=== PATIENT | male | born 1960 | race Caucasian/White ===

== ENCOUNTER 2017-12-07 08:47 | Emergency (ER) | payer OTHER ==
[~2017-12-07] VITALS: Ht 182.9 cm; Wt 98.0 kg
[~2017-12-07 08:47] MED LIST: ASPI81TA28 PO; PANT40TA PO
[2017-12-07 08:49] VITALS: TEMP 36.5; Ht 182.9 cm; Wt 98.0 kg
[2017-12-07] MEDS ORDERED: KETOROLAC TROMETHAMINE 60 MG/2 ML VIAL IM STA (09:15)
[2017-12-07] MEDS ORDERED: OXYCODONE HCL IR 5 MG TAB (IMMEDIATE RELEASE) PO STA (09:15)
[2017-12-07] MEDS ORDERED: DEXAMETHASONE SOD INJ 4 MG/ML 5 ML VIAL IM STA (09:15)
[2017-12-07] MEDS ORDERED: CYCLOBENZAPRINE HCL 10 MG TAB PO STA (09:15)
[2017-12-07] MEDS ORDERED: DEXAMETHASONE **PF** INJ 10 MG/ML VIAL ONE (09:24)
--- NOTE | 2017-12-07 10:17 | DIAGNOSTIC IMAGING REPORT ---
L-SPINE MIN 4 VIEWS ROUTINE HISTORY: Pain low back pain COMPARISON: None. FINDINGS: There is no fracture. Grade 1 anterolisthesis L5 on S1. Associated with a probable posterior spondylolysis. Mild degenerative osteophytic changes throughout. No evidence for compression deformity. Mild degenerative disc change throughout. IMPRESSION: 1. Grade 1 spondylolisthesis L5 on S1 associated with a posterior spondylolysis. 2. Estimated anterolisthesis is 1 cm. 3. Moderate degenerative disc change throughout most significant at L5-S1. The above report was generated using voice recognition software. It may contain grammatical, syntax or spelling errors. Electronically signed by: Ulices Pratt M.D. 12/07/2017 10:15 AM Dictated Date/Time: 12/07/2017 10:14 AM
[2017-12-07 10:24] VITALS: BP 115/79; PULSE 70; O2SAT 98
[2017-12-07] MEDS ORDERED: METH4PAK PO (10:33)
[2017-12-07] MEDS ORDERED: OXYC1TAB3 PO (10:33)
--- NOTE | 2017-12-07 10:34 | EMERGENCY ROOM VISIT NOTE ---
History First contact with patient: 09:00 Chief Complaint: BACK PAIN Stated Complaint: BACK PAIN History of Present Illness The patient is a 57 year old male who presents to the Emergency Room with complaints of right-sided low back pain which radiates into his right thigh. The patient states that he has had chronic low back pain for the past 5 years. She states it flares up intermittently but today it is worse. He does admit to lifting heavy intermittently and states he might have lifted something which irritated his back. The patient denies any numbness and tingling in his right lower leg. He denies a loss of bowel or bladder control or any saddle anesthesia. The patient has only seen a chiropractor in the past for his back. He has not taken anything today for the pain. He took some ibuprofen yesterday without any relief. Review of Systems 10 system review was performed and was negative unless stated otherwise history of present illness. Past Medical/Surgical History Knee surgery, hernia repair, chronic back pain Social History Smoking Status: Never Smoker Alcohol Use: occasionally Drug Use: none Marital Status: Occupation Status: employed Current/Historical Medications No Active Prescriptions or Reported Meds Physical Exam Vital Signs Date Time Temp Pulse Resp B/P (MAP) Pulse Ox O2 Delivery O2 Flow Rate FiO2 12/07/17 10:24 70 18 115/79 98 12/07/17 08:49 36.5 70 16 160/96 96 Physical Exam PHYSICAL EXAM: Vital Signs normal: Reviewed Nurse's notes and agree. GEN.: 57- year-old male appears in no acute distress. MENTAL STATUS: Alert and oriented 3. LUMBAR SPINE: No gross bony abnormality noted. Patient is nontender to palpation over the spinous processes. She is tender to palpation over the right paravertebral region, left side nontender. He has full range of motion of the lumbar spine with pain elicited with all movement. Muscle strength is 5 out of 5 bilateral lower extremities and symmetrical. NEURO: Patient is able to heel and toe walk without difficulty. I lateral patellar and Achilles reflexes are 2+. Sensation is intact to pinprick bilateral lower extremities. Negative straight leg raise bilaterally. Medical Decision & Procedures ER Provider Diagnostic Interpretation: L-SPINE MIN 4 VIEWS ROUTINE HISTORY: Pain low back pain COMPARISON: None. FINDINGS: There is no fracture. Grade 1 anterolisthesis L5 on S1. Associated with a probable posterior spondylolysis. Mild degenerative osteophytic changes throughout. No evidence for compression deformity. Mild degenerative disc change throughout. IMPRESSION: 1. Grade 1 spondylolisthesis L5 on S1 associated with a posterior spondylolysis. 2. Estimated anterolisthesis is 1 cm. 3. Moderate degenerative disc change throughout most significant at L5-S1. The above report was generated using voice recognition software. It may contain grammatical, syntax or spelling errors. Electronically signed by: Ulices Pratt M.D. Medications Administered Medications (Trade) Dose Ordered Sig/Ian Route Start Time Stop Time Status Last Admin Dose Admin Ketorolac Tromethamine (Toradol Inj) 60 mg NOW STAT IM 12/07/17 09:15 12/07/17 09:19 DC 12/07/17 09:28 60 MG Cyclobenzaprine HCl (Flexeril Tab) 10 mg NOW STAT PO 12/07/17 09:15 12/07/17 09:19 DC 12/07/17 09:27 10 MG Oxycodone HCl (Roxicodone Immediate Rel Tab) 5 mg NOW STAT PO 12/07/17 09:15 12/07/17 09:19 DC 12/07/17 09:27 5 MG Dexamethasone Sodium Phosphate (Dexamethasone Inj Pf) 10 mg STK-MED ONCE .ROUTE 12/07/17 09:24 12/07/17 09:25 DC 12/07/17 09:28 10 MG ED Course The patient was evaluated. The patient's EMR medication list were reviewed. X- ray of the lumbar spine was ordered and interpreted by the radiologist and myself as above with spondylolisthesis and degenerative disease noted.. The patient was given Decadron 10 mg IM, Toradol 60 mg IM and OxyIR 5 mg. The patient was informed of the findings on the x-ray. He was reevaluated was feeling better. The patient was discharged home in stable condition. Medical Decision Differential diagnoses include sciatica, spinal stenosis, muscle spasm, radiculopathy [place] Drug Monitoring Program Search Results: patient reviewed within database Medication Reconcilliation Current Medication List: was personally reviewed by me Blood Pressure Screening Patient's blood pressure: Normal blood pressure Impression Primary Impression: Low back pain with right-sided sciatica Departure Information Dispostion Home / Self-Care Condition GOOD Prescriptions Oxycodone Immediate Rel Tab (ROXICODONE IR) 5 Mg Tab 1-2 TAB PO Q6 Y for Pain, #20 TAB Prov: Evi Pratt PA-C 12/07/17 Methylprednisolone (MEDROL DOSEPAK) 4 Mg Dajuan 0 PO DAILY, #1 PKT Prov: Evi Pratt PA-C 12/07/17 Referrals Ulices Taylor M.D. (PCP) Forms HOME CARE DOCUMENTATION FORM, IMPORTANT VISIT INFORMATION Patient Instructions My [facility] Additional Instructions Ibuprofen 600 mg every 6 hours with food. Take Medrol dosepak as prescribed. Take OxyIR as needed for more severe pain. Do not drive while taking the OxyIR. Do not stay in any one position for any extended period of time. If symptoms are not improving in 1-2 weeks, follow-up with your family doctor for referral to spinal surgeon. Problem Qualifiers Primary Impression: Low back pain with right-sided sciatica Chronicity: acute Back pain laterality: right Qualified Codes: M54.41 - Lumbago with sciatica, right side
== END 2017-12-07 10:44 | disposition home or self-care (01) ==
LOC: C.EDB 08:49 → C.EDA 10:44
DX: M51.16 Intervertebral disc disorders with radiculopathy, lumbar region (principal); M43.16 Spondylolisthesis, lumbar region